=== PATIENT | female | born 1975 ===

== ENCOUNTER 2025-03-29 20:42 | Emergency (ER) | payer SELFPAY ==
--- OUTSIDE RECORDS SUMMARY | 2025-03-29 21:30 | XMS_ITS | Continuity of Care Document ---
Author Organization [employer] [facility] Address [address] [place] [phone] Phone Care Team Providers Care Brick Layer Name Role Phone Alexander RODRIGUEZ, [place] Unavailable Unavailabl e Allergies, Adverse Reactions, Alerts Substance Reaction Status Criticality No Known Allergies Active No Inform ation Medications Medication Instructions Dosage Effective Dates (start - stop) Status Comments valacyclovir 500 mg tablet take 1 tablet by oral route every day 500 MG - Active metronidazole 0.75 % (37.5 mg/5 gram) vaginal gel insert 1 applicatorful by vaginal route every day at bedtime for 5 days - Active NORTRIPTYLINE HCL 10 MG CAP TAKE 3 CAPSULES BY MOUTH AT BEDTIME - Active FLUOXETINE HCL 40 MG CAPSULE TAKE 1 CAPSULE BY MOUTH EVERY DAY IN THE MORNING FOR DEPRESSION - Active Procedures Procedure Date Alcohol and/or drug screening PH, BODY FLUID, EXCEPT BLOOD SMEAR, WET MOUNT, SALINE/INK PERIODIC COMPREHENSIVE PREVENTIVE MED RE E/M; ESTABLISHED PATIENT; OFFICE OUTPT EST 25 MIN HEMOGLOBIN; GLYCOSYLATED (A1C) 25 Urinalysis, Auto, w/o Scope OFFICE O/P EST 5 MIN PERIODIC COMPREHENSIVE PREVENTIVE MED RE E/M; ESTABLISHED PATIENT; 40-64 HEMOGLOBIN; GLYCOSYLATED (A1C) 25 Therapeutic behavioral services, per 15 minutes OFFICE OUTPT EST 25 MIN 1ST COMPRE PREV MED E/M NEW PT 40-64 Sep Alcohol and/or drug screening 4 Advance Directives Directive Yes / No Effective Date File Name No Information Encounters Encounter Description Practice Location Reason(s) For Visit Diagnoses Date Provider Providers Copied on Encounter [facility], [address], [place], [place], [address] , tel: [phone] [facility] No Information 5 Alexander Tim. [address], [place], [place], [address], [place]. tel:[phone] PERIODIC COMPREHENSIVE PREVENTIVE MED REE/M; ESTABLISHED PATIENT; [facility], [address], [place], [place], [address] , [place] tel: [phone] [facility] annual exam (chief complaint) WWE (chief complaint) Body mass index (BMI) 38.0-38.9, adultEncntr screen mammogram for malignant neoplasm of breastEncount er for screening for cancer of colonScreenin g for cervical cancerEncntr screen for infections w sexl mode of transmissAcut e vaginitisHerp esviral vulvovaginiti sEncounter for routine ancillary services manager therapy exam w/ abnormal finding No Information OFFICE O/P EST 5 MIN [facility], [address], [place], [place], [address] , [place] tel: [phone] [facility] BP check (chief complaint) No Information 5 Nurse Registered. [address], [place], [place], [address], [place]. tel:[phone] Consulting Provider: Julia Reddy, [address], [place], [address]. tel:[phone] PERIODIC COMPREHENSIVE PREVENTIVE MED REE/M; ESTABLISHED PATIENT; [facility], [address], [place], [place], [address] , [place] tel: [phone] [employer] annual (chief complaint) Encounter for adult annual physical examination with abnormal findingsDepre ssionMigraine Encounter for screening for cancer of colonElevated BP reading w/o diagnosis of HTNEncntr screen mammogram for malignant neoplasm of breast 5 No Information [facility], [address], [place], [place], [address] , [place] tel: [phone] [employer] Cook Encounter for screening colonoscopyEn counter for screening mammogram for Ca of breast 4 No Information [facility], [address], [place], [place], [address] , [place] tel: [phone] [employer] No Information 4 No Information [facility], [address], [place], [place], [address] , [place] tel: [phone] [employer] [facility] [place] Encounter for adult annual physical examination with abnormal findingsMigra ineDepression Encounter for screening for other disorderBody mass index (BMI) 38.0-38.9, adult 4 Sunny Grace. [address], [place], [place], [address], [place]. tel:[phone] OFFICE OUTPT EST 25 MIN [facility], [address], [place], [place], [address] , [place] tel: [phone] [employer] Cook F/U Migraine (chief complaint) Body mass index (BMI) 38.0-38.9, adultMigraine DepressionObe sityEncounter for screening mammogram for Ca of breastEncount er for screening colonoscopy 4 No Information 1ST COMPRE PREV MED E/M NEW PT 40-64 [facility], [address], [place], [place], [address] , [place] tel: [phone] [employer] Cook Establish care (chief complaint) Body mass index (BMI) 38.0-38.9, adultEncounte r for adult annual physical examination with abnormal findingsMigra ineDepression Encounter for screening for other disorder 4 No Information Family History Family Member Type Diagnosis Age At Onset No Information Payers Payer name Insurance type Covered alliance party ID Bradley romero(s) R CI [id number] Social History Type Description Quantity Date Captured Comments Alcohol Use Details Unknown Caffeine Use Details Unknown Tobacco Use Status No Information Smoking Status No Information Sex Female Sexual Orientation Straight or heterosexual Oct Gender Identity Female Chief Complaint And Reason For Visit No Information Reason For Referral Reason For Referral No Information Plan Of Treatment Date Type Action Status Referral Ordered: [facility] Colon Rectal -Colonoscopy (related to Encounter for screening for cancer of colon) ordered Referral Referred To: [facility] Colon Rectal [address] [facility]
[address] [place], [phone] Ordered: Referrals: Colonoscopy. [facility] Colon Rectal. Evaluate and treat ordered Referral Referred To: [facility] Radiology/[place], [phone] Ordered: Referrals: Mammography Screening and Diagnostic. [facility] Radiology/Mammography. Evaluate and treat ordered Future Order: Lab Order Faxed FI T-DNA (Cologuard) (OC301), Ordered on: Ordered Nutrition Recommendation Nutrition therap y completed Nutrition Recommendation Nutrition therap y completed Nutrition Recommendation Nutrition therap y completed History Of Present Illness Encounter Date Complaint History Of Prese nt Illness annual exam Currently pregna nt: no. : 7. Parity: Term: 4. induced: 3. Livin. Last LMP was 10/13/2024. Diet Healthy. The client does not use tobacco. The client has not been exposed to passive smoke. The client does drink alcohol. 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 - Endorsing some yellowish vaginal discharge- H/o HSV, has norris having flares more frequently, would like suppressive therapy - Denies abnormal vaginal bleeding. Denies vaginal itching/irritation/pain. - Denies dysuria, frequent urination, or incontinence.- Denies breast pain/tenderness, lumps, skin changes, or nipple discharge. - Denies chest pain, heart palpitations, or SOB- Significant PMH: depression/anxiety (well controlled on fluoxetine) and - OBGYN hx: , 4 term NSVB, 3 EAB - Last pap: 2-3 years ago, records unavailable - H/o abnormal pap: in 20s, normal paps since- LMP: 10/13/2024, normal monthly menses- Sexual activity and anatomy of sex partner(s): not SA currently, would like testing - Current/desired contraception: s/p BTL - Safety: feels safe at home- Mood: good w/ fluoxetine - Screenings: > Breast cancer (over 40 or fam hx): UTD, next due later this year > Cervical cancer (over 21): due today > Colon cancer (over 45 or fam hx): due now, needs updated referral and labs > Hep C: UTD- Immunizations: declines COVID and flu [facility]. Pt states she is not on any medications would like to try and manage BP on her own since readings are not high. Nurse encouraged pt to modify diet and lifestyle changes such as low sodium, high fiber and low fat foods to assist with lowering BP. Along with daily exercise. Pt drinks Celsius energy drinks, recently stop drinking coffee. Pt takes vitamin B12. 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 annual Well Adult Visit . No acute concernsPMHx: Depression, MigrainesMood-report stable with no depression -denies SI/HIElevated BP -BP today 148/91, 142/85-decreased consumption of processed foods but does use seasoning salt-decreased fried foods-Drinking water and Celsius for (energy)-admit to drinking Pedialyte and states it is to make up from the lack of water consumptionMeds: taking iron supplements, Fluoxitine, NortriptylineAllergies: nonePSxHx: noneOB/GEOSCIENCES PROFESSOR Hx:G PLMP:MOC:STD hx:Fam Hx:Social:Tobacco/ETOH/Illicit:ROS: denies CP, SOB, peripheral edema, rash, anxiety, depression, nausea, abdominal pain, constipation, diarrhea, rhinorrhea, discharge, dysuria. USPFTF:Colon cancer screen: neverMammogram: 2024Pap smear: Need to scheduleDental exam, every year: dueVision exam, every year: dueLast a1c: dueLast FLP: dueHepatitis C screen 18 to 79 years, one time: due F/U Migraine Here today for f ollow upMigraines-report no migraines since taking nortriptyline 10mg-states able to sleep well at night Mental Health-depression episodes have decreased since taking Fluoxetine 40mg-states would like to see a therapist to maintain a healthy statePreventative Screens-A1C 5.8; discussed lifestyle modifications working out at [employer] 3x week decreased sugars, sodas, and fried foods-Colonoscopy referral placed today-Mammogram referral placed today Establish care Here today to [facility] care.PMHx: depression, migrainesDepression-seeing therapist 1x month in [place]-dx in 2018-report only one depressive episode when transitioned to [place]-repot take medication consistently every morning and with no current issuesMigraines-dx in 2003-report get an aura that consist of a tingling sensation and specs-was in Imitrex in 2013 but it was making it worse-stopped with approval of PCP; using Ibuprofen with onset of the aura-report migraines coincide with menstruation -report triggers are sun, heat, humidity, lack of rest-report if not eating enough green vegetables or drinking enough water-report the last aura without a headache in August 2023-report don't remember the last time she had a migraine-report neurologist prescribed nortriptyline and PCP refilled the medicationMeds: fluoxetine, nortriptylineAllergies: nonePSxHx: tubal ligation carpal tunnel bilateral 07/2021, 2OB/GEOSCIENCES PROFESSOR Hx: WWE; think it may have been 2021; report normalG-4 P-4 w/4 abortionsLMP: 09/18/23, normal and regularMOC: tubal ligationSTD hx: herpes; dx 1998s: last outbreak at 07/2023Fam Hx: noneSocial: live with son; working for [employer] as a bus driverTobacco/ETOH/Illicit:no cigMJ BRANDIE 2019brandy 1-2 glasses 5 drinks in past 12 monthsROS: denies CP, SOB, peripheral edema, rash, anxiety, depression, nausea, abdominal pain, constipation, diarrhea, rhinorrhea, discharge, dysuria. USPFTF: Age 48Colon cancer screen: prefer [facility] Mammogram: women: last MMG 2018; due and prefer [facility]Pap smear: due 2024Dental exam, every year: UTD; outside clinicVision exam, every year: appt ; outside clinic Functional Status Date Functional Assessmen t No Information Instructions Date Instruction Additional Infor anali - STI testing done t christian. Will call and follow up with lab results. - Discussed harm reduction/safer sex practices including use of internal or external condoms and/or dental dams, PreP for HIV prevention, and regular STI testing.- Discussed signs and symptoms of STIs including abnormal discharge and/or odor, bleeding, skin changes, and/or pain in anatomical areas of sexual activity. Reviewed that many STIs may be asymptomatic. - Follow up as needed. Related to Encntr screen for infections w sexl mode of transmiss - Referral sent, labs pending. R elated to Encounter for screening for cancer of colon - Mammogram UTD. Related to Encn tr screen mammogram for malignant neoplasm of breast - Pap/HPV cotest don e today. Patient with no h/o abnormal paps. - Discussed next due depending on results. Will call or send letter with results. - Follow up as indicated. Related to Screening for cervical cancer - Metronidazole pres cribed today and medication instructions reviewed.- Encouraged probiotic supplement.- Discouraged douching or use of harsh/scented soaps or detergents.- Discussed that many people may experience recurrent BV. Encouraged follow up as needed if symptoms do not resolve. Related to Acute vaginitis - Discussed suppress susan vs. episodic treatment. Patient opts for suppressive. - Medication instructions reviewed and valtrex sent. Related to Herpesviral vulvovaginitis - Physical exam WNL. VSS.- Discussed perimenopause.- Encouraged varied diet with fruits, vegetables, and lean protein.- Discussed dietary modification such as decreased fat and simple carbohydrates.- Recommended 30 min of moderate to vigorous-intensity physical activity 3-4 times/week, and alternating cardio, strength, and flexibility exercises. - Encouraged wellness practices and positive coping mechanisms.- Labs drawn today; will notify patient of results.- Next annual due: one year - Next pap due: done today - Next mammogram due: UTD- Next colonoscopy due: now- Immunizations: declines Related to Encounter for routine ancillary services manager therapy exam w/ abnormal finding Prescribed activity/exercise edu cation Related to Body mass index [BMI] 38.0-38.9, adult BP check with freida oliveira in 2 weeks Follow up with PCP in 4 weeksRefrain from drinking Pedialyte/Gatorade as discussed and replace with water at least 2 Liters a dayLose extra pounds and watch your waistlineBeing overweight also can cause disrupted breathing while you sleep (sleep apnea), which further raises blood pressureExercise regularlyRegular physical activity can lower high blood pressure by about 5 to 8 mm HgEat a healthy diet,(DASH) diet and the Mediterranean dietEating a diet rich in whole grains, fruits, vegetables and low-fat dairy products and low in saturated fat and cholesterol can lower high blood pressure by up to 11 mm Hg.Reduce salt (sodium) in your dietEven a small reduction of sodium in the diet can improve heart health and reduce high blood pressure by about 5 to 6 mm Hg. In general, limit sodium to 2,300 milligrams (mg) a day or less. However, a lower sodium intake 1,500 mg a day or less is ideal for most adults. Related to Elevated BP reading w/o diagnosis of HTN Mood Stable Continue Fluoxetine as prescribed Related to Depression Headaches are stable Continue Nortriptyline as prescribed Related to Migraine Labs updated as flavio cated Yearly eye exam is recommendedYearly Dental exam is recommendedEat a balanced diet of fruits/vegetables and lean proteinsGet in at least 30-40 mins of physical activity 4-5 times a weekFollow up annually for wellness visit Related to Encounter for adult annual physical examination with abnormal findings Try a Cold Pack. If you have a migraine, place a cold pack on your foreheadUse a Heating Pad or Hot CompressEase Pressure on Your Scalp or HeadDim the LightsTry Not to ChewHydrateGet Some Caffeine Related to Migraine Warm handoff to Jody saenz LCSW for therapy options Related to Depression Increase intake of v egetables, fruits, legumes, nuts, whole grains, and fishReduce cholesterol and sodiumReplace saturated fat with dietary mono and poly-unsaturated fatsReduce intake of trans fats, processed meats, refined carbohydrates, and ray drinks Related to Obesity Giving encouragement to exercise Related to Body mass index [BMI] 38.0-38.9, adult Continue taking Fluo xetine, [facility] Related to Depression Continue Nortriptyli ne 10mg 3 tabs daily at bedtime, Rx sent to pharmacyTurn off the lights. Light and sound can make migraine pain worseTry temperature therapy. Apply hot or cold compresses to your head or neckSip a caffeinated drink.Avoid triggers Related to Migraine Labs updated as flavio cated Yearly eye exam is recommendedYearly Dental exam is recommendedEat a balanced diet of fruits/vegetables and lean proteinsGet in at least 30-40 mins of physical activity 4-5 times a weekFollow up annually for wellness visit Related to Encounter for adult annual physical examination with abnormal findings Giving encouragement to exercise Related to Body mass index [BMI] 38.0-38.9, adult Assessments Type Assessment Date No Information Patient Care Teams Name Effective Dates (start - stop) Status Members No Information
== END 2025-03-29 20:45 | disposition left against medical advice (07) ==
LOC: ANHED 21:28
DX: Z53.21 Procedure and treatment not carried out due to patient leaving prior to being seen by health care provider (principal)
CPT/HCPCS: 99199

== ENCOUNTER 2025-03-30 13:33 | Emergency (ER) | payer OTHER, SELFPAY ==
--- OUTSIDE RECORDS SUMMARY | 2025-03-30 13:37 | XMS_ITS | Continuity of Care Document ---
Author Organization [employer] [facility] Address [address] [place] [phone] Phone Care Team Providers Care Jet Engine Mechanic Name Role Phone Alexander RODRIGUEZ, [place] Unavailable [...] Diagnoses Date Provider Providers Copied on Encounter [facility], [address], [place], [place], [address] , tel: [phone] [facility] [employer] [facility] No Information 5 Alexander Tim. [address], [place], [place], [address], [place]. tel:[phone] PERIODIC COMPREHENSIVE PREVENTIVE MED REE/M; ESTABLISHED PATIENT; [employer] [facility], [address], [place], [place], [address] , [place] tel: [phone] [employer] annual exam (chief complaint) WWE (chief complaint) Body mass index (BMI) 38.0-38.9, adultEncntr screen mammogram for malignant neoplasm of breastEncount er for screening for cancer of colonScreenin g for cervical cancerEncntr screen for infections w sexl mode of transmissAcut e vaginitisHerp esviral vulvovaginiti sEncounter for routine underwriter mortgage loan exam w/ abnormal finding No Information OFFICE O/P EST 5 MIN [employer] [facility], [address], [place], [place], [address] , [place] tel: [phone] [facility] BP check (chief complaint) No Information 5 Nurse Registered. [address], [place], [place], [address], [place]. tel:[phone] Consulting Provider: Julia Reddy, [address], [place], [address]. tel:[phone] PERIODIC COMPREHENSIVE PREVENTIVE MED REE/M; ESTABLISHED PATIENT; [employer] [facility], [address], [place], [place], [address] , [place] tel: [phone] [facility] annual (chief complaint) Encounter for adult annual physical examination with abnormal findingsDepre ssionMigraine Encounter for screening for cancer of colonElevated BP reading w/o diagnosis of HTNEncntr screen mammogram for malignant neoplasm of breast 5 No Information [facility], [address], [place], [place], [address] , [place] tel: [phone] [facility] Encounter for screening colonoscopyEn counter for screening mammogram for Ca of breast 4 No Information [facility], [address], [place], [place], [address] , [place] tel: [phone] [facility] No Information 4 No Information [facility], [address], [place], [place], [address] , [place] tel: [phone] [employer] [facility] [place] Encounter for adult annual physical examination with abnormal findingsMigra ineDepression Encounter for screening for other disorderBody mass index (BMI) 38.0-38.9, adult 4 Sunny Grace. [address], [place], [place], [address], [place]. tel:[phone] OFFICE OUTPT EST 25 MIN [facility], [address], [place], [place], [address] , [place] tel: [phone] [facility] F/U Migraine (chief complaint) Body mass index (BMI) 38.0-38.9, adultMigraine DepressionObe sityEncounter for screening mammogram for Ca of breastEncount er for screening colonoscopy 4 No Information 1ST COMPRE PREV MED E/M NEW PT 40-64 [facility], [address], [place], [place], [address] , [place] tel: [phone] [facility] Establish care (chief complaint) Body mass index (BMI) 38.0-38.9, adultEncounte r for adult annual physical examination with abnormal findingsMigra ineDepression Encounter for screening for other disorder 4 No Information Family History Family Member Type Diagnosis Age At Onset No Information Payers Payer name Insurance type Covered alliance party ID Bradley romero(s) R CI [id number] Social History Type Description Quantity Date Captured Comments Alcohol Use Details Unknown Caffeine Use Details Unknown Tobacco Use Status No Information Smoking Status No Information Sex Female Sexual Orientation Straight or heterosexual Oct Gender Identity Female Chief Complaint And Reason For Visit No Information Reason For Referral Reason For Referral No Information Plan Of Treatment Date Type Action Status Referral Ordered: [facility] Colon Rectal -Colonoscopy (related to Encounter for screening for cancer of colon) ordered Referral Referred To: [facility] Colon Rectal [address] [facility]
[address] [place], [phone] Ordered: Referrals: Colonoscopy. [facility] Colon Rectal. Evaluate and treat ordered Referral Referred To: [facility] Radiology/[place], [phone] Ordered: Referrals: Mammography Screening and Diagnostic. [facility] Radiology/Mammography. Evaluate and treat ordered Future Order: [...] ar old here today for her annual LAST INSERTER/ well-person exam. - Endorsing some yellowish vaginal [...] takes vitamin B12. 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 Related to Encn tr screen mammogram for malignant neoplasm of breast - Referral sent, labs pending. R elated to Encounter for screening for cancer of colon - STI testing done t christian. Will [...] infections w sexl mode of transmiss - Pap/HPV cotest don e today. Patient [...] Immunizations: declines Related to Encounter for routine underwriter mortgage loan exam w/ abnormal finding Prescribed activity/exercise edu [...] Continue taking Fluo xetine, [facility] [...]
[2025-03-30 13:57] VITALS: BP 145/100; PULSE 83; RESP 20; TEMP 36.6; O2SAT 100
--- OUTSIDE RECORDS SUMMARY | 2025-03-30 14:34 | XMS_ITS | Continuity of Care Document ---
Author Organization [facility] Address [address] [place] [phone] Phone Care Team Providers Care Dolphin Trainer Name Role Phone Alexander RODRIGUEZ, [place] Unavailable [...] Diagnoses Date Provider Providers Copied on Encounter [facility], [address], [place], [place], [id number] , tel: [phone] [facility] No Information 5 Alexander Tim. [address], [place], [place], [address], [place]. 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; [employer] [employer], [address], [place], [place], [address] , [place] tel: [phone] [facility] annual exam (chief complaint) WWE (chief complaint) Body mass index (BMI) 38.0-38.9, adultEncntr screen mammogram for malignant neoplasm of breastEncount er for screening for cancer of colonScreenin g for cervical cancerEncntr screen for infections w sexl mode of transmissAcut e vaginitisHerp esviral vulvovaginiti sEncounter for routine integration solution architect exam w/ abnormal finding No Information OFFICE O/P EST 5 MIN [employer] [employer], [address], [place], [place], [address] , [place] tel: [phone] [facility] BP check (chief complaint) No Information 5 Nurse Registered. [address], [place], [place], [id number], [place]. tel:[phone] Consulting Provider: Julia Reddy, [address], [place], [address]. 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; [employer], [address], [place], [place], [address] , [place] tel: [phone] [facility] annual (chief complaint) Encounter for adult annual physical examination with abnormal findingsDepre ssionMigraine Encounter for screening for cancer of colonElevated BP reading w/o diagnosis of HTNEncntr screen mammogram for malignant neoplasm of breast 5 No Information [facility], [address], [place], [place], [address] , [place] tel: [phone] Gertrude Cook Encounter for screening colonoscopyEn counter for screening mammogram for Ca of breast 4 No Information [facility], [address], [place], [place], [address] , [place] tel: [phone] [facility] No Information 4 No Information [facility], [address], [place], [place], [address] , [place] tel: [phone] [facility] [place] Encounter for adult annual physical examination with abnormal findingsMigra ineDepression Encounter for screening for other disorderBody mass index (BMI) 38.0-38.9, adult 4 Sunny Grace. [address], [place], [place], [address], [place]. tel:[phone] OFFICE OUTPT EST 25 MIN [facility], [address], [place], [place], [address] , [place] tel: [phone] Gertrude Cook F/U Migraine (chief complaint) Body mass index (BMI) 38.0-38.9, adultMigraine DepressionObe sityEncounter for screening mammogram for Ca of breastEncount er for screening colonoscopy 4 No Information 1ST COMPRE PREV MED E/M NEW PT 40-64 [facility], [address], [place], [place], [address] , [place] tel: [phone] Gertrude Cook Establish care (chief complaint) Body mass index (BMI) 38.0-38.9, adultEncounte r for adult annual physical examination with abnormal findingsMigra ineDepression Encounter for screening for other disorder 4 No Information Family History Family Member Type Diagnosis Age At Onset No Information Payers Payer name Insurance type Covered green party ID Bradley romero(s) R CI [id number] Social History Type Description Quantity Date Captured Comments Alcohol Use Details Unknown Caffeine Use Details Unknown Tobacco Use Status No Information Smoking Status No Information Sex Female Sexual Orientation Straight or heterosexual Oct Gender Identity Female Chief Complaint And Reason For Visit No Information Reason For Referral Reason For Referral No Information Plan Of Treatment Date Type Action Status Referral Ordered: [facility] Colon Rectal -Colonoscopy (related to Encounter for screening for cancer of colon) ordered Referral Referred To: [facility] Colon Rectal [id number] [facility]
[address] [place], [phone] Ordered: Referrals: Colonoscopy. [facility] Colon Rectal. Evaluate and treat ordered Referral Referred To: [facility] Radiology/[place], [phone] Ordered: Referrals: Mammography Screening and Diagnostic. [facility] Radiology/Mammography. 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 - Endorsing some yellowish vaginal [...] COVID and flu BP [facility]. Pt states she [...] vitamin B12. 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 and has [...] consumptionMeds: taking iron supplements, Fluoxitine, NortriptylineAllergies: nonePSxHx: noneOB/COUNTER TOP ASSEMBLER Hx:G PLMP:MOC:STD hx:Fam Hx:Social:Tobacco/ETOH/Illicit:ROS: denies CP, SOB, [...] 5.8; discussed lifestyle modifications working out at [employer] 3x week decreased sugars, sodas, and fried foods-Colonoscopy referral placed today-Mammogram referral placed today Establish care Here today to [facility] care.PMHx: depression, migrainesDepression-seeing therapist 1x month in [place]-dx in 2018-report only one depressive episode when transitioned to [place]-repot take medication consistently every morning and with [...] nonePSxHx: tubal ligation carpal tunnel bilateral 07/2021, 2OB/COUNTER TOP ASSEMBLER Hx: WWE; think it may have been 2021; report normalG-4 P-4 w/4 abortionsLMP: 09/18/23, normal and regularMOC: tubal ligationSTD hx: herpes; dx 1998s: last outbreak at 07/2023Fam Hx: noneSocial: live with son; 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 Patient with no h/o abnormal paps. - Discussed next due depending on results. Will call or send letter with results. - Follow up as indicated. Related to Screening for cervical cancer - STI testing done t [facility]. Will [...] mammogram for malignant neoplasm of breast - Metronidazole pres cribed today and medication [...] Immunizations: declines Related to Encounter for routine integration solution architect exam w/ abnormal finding Prescribed activity/exercise edu [...] [facility] taking Fluo [facility] [...]
[2025-03-30 14:52] LABS: Hematocrit 35.9 % (37.0-47.0); Hemoglobin 11.9 g/dL (12.0-15.0); Immature Granulocyte Percent A 0.2 % (0-0.5); Lymphocytes Absolute Auto 3.07 K/mm3 (0.9-3.2); Mean Corpuscular HGB Conc 33.1 g/dl (32-36); Mean Corpuscular Hemoglobin 29.2 pg (26-34); Mean Corpuscular Volume 88.0 fl (80-100); Nucleated Red Blood Cells Absolute Auto 0.000 K/mm3 (0.0-0.012); Nucleated Red Blood Cells Perc 0.0 % (0.0-0.2); Platelet Count Result 255 k/mm3 (150-375); Red Blood Count 4.08 M/mm3 (4.2-5.4); White Blood Count 9.1 K/mm3 (4.5-10.0)
--- NOTE | 2025-03-30 14:53 | ED.GENADULT ---
HPI - General Adult General Chief complaint: GI Bleed Stated complaint: Rectal Bleed Time Seen by Provider: 03/30/25 13:59 History of Present Illness HPI narrative: This is a 41-year-old female presenting for rectal bleeding. Patient says that she was very constipated. After that she wiped and noticed that there was blood on the toilet paper. Patient has a history of hemorrhoids. She does not have any abdominal pain. No use of blood thinners or history of alcohol abuse. She has never had a colonoscopy. She is unclear if she has any history of diverticulosis. Patient has a history of iron deficiency anemia and is on iron supplementation. Exam Narrative: APPEARANCE: No apparent distress. Head: atraumatic. EYES: EOMI, NOSE: Atraumatic NECK: Trachea midline RESPIRATORY: No increased rate of breathing CARDIOVASCULAR: RRR, ABDOMINAL: Non-distended MUSCULOSKELETAl: No obvious deformities Rectal exam: External hemorrhoid NEURO: Alert. Moving 4/4 extremities SKIN:: Warm, dry. Normal color PSYCHIATRIC: Normal affect Course Vital Signs Vital signs: Vital Signs Temperature 97.9 F 03/30/25 13:57 Pulse Rate 83 03/30/25 13:57 Respiratory Rate 20 03/30/25 13:57 Blood Pressure 145/100 H 03/30/25 13:57 Pulse Oximetry 100 03/30/25 13:57 Oxygen Delivery Room Air 03/30/25 13:57 Temperature 97.9 F 03/30/25 13:57 Pulse Rate 83 03/30/25 13:57 Respiratory Rate 20 03/30/25 13:57 Blood Pressure 145/100 H 03/30/25 13:57 Pulse Oximetry 100 03/30/25 13:57 Oxygen Delivery Room Air 03/30/25 13:57 Medical Decision Making [facility] Narrative Medical decision making narrative: -Course: 49-year-old female presenting with some blood on the toilet paper after a hard bowel movement. Abdominal exam benign. Has hemorrhoid on digital rectal exam. No rebecca blood on digital exam. Vital signs stable. Hemoglobin is 11.9. Patient has a history of iron deficiency anemia although I do not have a baseline hemoglobin. Overall patient is low risk. Patient will be discharged with GI follow-up. Given return precautions. -DDX includes but is not limited to: Hemorrhoid bleed, diverticular bleed Vital Signs Vital Signs: Vital Signs Temperature 97.9 F 03/30/25 13:57 Pulse Rate 83 03/30/25 13:57 Respiratory Rate 20 03/30/25 13:57 Blood Pressure 145/100 H 03/30/25 13:57 Pulse Oximetry 100 03/30/25 13:57 Oxygen Delivery Room Air 03/30/25 13:57 Temperature 97.9 F 03/30/25 13:57 Pulse Rate 83 03/30/25 13:57 Respiratory Rate 20 03/30/25 13:57 Blood Pressure 145/100 H 03/30/25 13:57 Pulse Oximetry 100 03/30/25 13:57 Oxygen Delivery Room Air 03/30/25 13:57 Lab Data 03/30/25 14:43 03/30/25 14:43 Labs: Lab Results 03/30/25 Range/Units 14:43 WBC 9.1 (4.5-10.0) K/mm3 RBC 4.08 L (4.2-5.4) M/mm3 Hgb 11.9 L (12.0-15.0) g/dL Hct 35.9 L (37.0-47.0) % MCV 88.0 (80-100) fl MCH 29.2 (26-34) pg MCHC 33.1 (32-36) g/dl RDW 12.9 (11.5-14.5) % Plt Count 255 (150-375) k/mm3 MPV 9.0 (7.4-10.4) fl Immature Gran % (Auto) 0.2 (0-0.5) % Neut % (Auto) 56.1 (45.5-73.1) % Lymph % (Auto) 33.6 (18.3-44.2) % [place] % (Auto) 5.9 (2.6-8.5) % Eos % (Auto) 3.7 (0-4.4) % Baso % (Auto) 0.5 (0.2-1.2) % Lymph # (Auto) 3.07 (0.9-3.2) K/mm3 [place] # (Auto) 0.5 (0.1-0.6) K/mm3 Eos # (Auto) 0.3 (0-0.3) K/mm3 Baso # (Auto) 0.1 (0.0-0.1) K/mm3 Abs Immat Gran (auto) 0.02 (0.00-0.031) K/mm3 Absolute Neuts (auto) 5.1 (1.3-6.7) K/mm3 Absolute Nucleated RBC 0.000 (0.0-0.012) K/mm3 Nucleated RBC % 0.0 (0.0-0.2) % Sodium 138 (137-145) mmol/L Potassium 4.0 (3.4-5.0) mmol/L Chloride 107 (98-107) mmol/L Carbon Dioxide 22 (22-30) mmol/L Anion Gap 9 (4-12) mmol/L BUN 12 (7-17) mg/dL Creatinine 0.84 (0.7-1.0) mg/dL Estim Creat Clear Calc 89 ml/min Estimated GFR > 60 (59 - ) Glucose 88 (65-110) mg/dL Calcium 9.5 (8.4-10.2) mg/dL Total Bilirubin < 0.1 L (0.2-1.3) mg/dL AST 26 (14-36) U/L ALT 17 (6-35) U/L Alkaline Phosphatase 63 (38-126) U/L Total Protein 7.3 (6.3-8.2) g/dL Albumin 4.0 (3.5-5.1) g/dL Discharge Plan Discharge Clinical Impression: GI bleed Patient Disposition: Home Condition: Stable Instructions: Antibiotic Form, Rectal Bleeding (ED) Additional Instructions: You were seen emergency department for rectal bleeding. Please follow-up with the GI physician listed below. If you continue to have profuse rectal bleeding or become lightheaded, faint or feel short of breath please return to ED for re-evaluation. Patient Language: Belgian Follow-up/Referrals: PHYSICIAN,DENTAL SERVICES DIRECTOR [Primary Care Provider] - Rashi Arora MD [Physician] - 1 Week (rectal bleeding )
[2025-03-30 15:05] LABS: Alanine Aminotransferase 17 U/L (6-35); Albumin Level 4.0 g/dL (3.5-5.1); Alkaline Phosphatase 63 U/L (38-126); Anion Gap 9 mmol/L (4-12); Aspartate Amino Transferase 26 U/L (14-36); Bilirubin,Total < 0.1 mg/dL (0.2-1.3); Blood Urea Nitrogen 12 mg/dL (7-17); Calcium 9.5 mg/dL (8.4-10.2); Carbon Dioxide 22 mmol/L (22-30); Chloride 107 mmol/L (98-107); Estimated CRCL calculation 89 ml/min; Estimated Glomerular Filt Rate > 60; Glucose 88 mg/dL (65-110); Potassium 4.0 mmol/L (3.4-5.0); Sodium 138 mmol/L (137-145); Total Protein 7.3 g/dL (6.3-8.2)
== END 2025-03-30 15:46 | disposition home or self-care (01) ==
PROVIDERS: Emergency Provider Emergency Medicine
DX: K92.2 Gastrointestinal hemorrhage, unspecified (principal); D50.9 Iron deficiency anemia, unspecified
CPT/HCPCS: 36415; 80053; 85025; 99283